=== PATIENT | female | born 1995 | race African-American/Black ===

== ENCOUNTER 2017-05-08 23:30 | Inpatient (IN) | payer MEDICAID ==
[~2017-05-08] VITALS: Ht 167.6 cm; Wt 63.6 kg
[2017-05-08] MEDS ORDERED: LITHIUM CARBON300 MG PO (23:38)
[2017-05-08] MEDS ORDERED: TRINESSA1 TAB PO (23:40)
[2017-05-08 23:45] VITALS: BP 129/84
[2017-05-09] VITALS (29 sets, daily range): BP systolic 90–137; BP diastolic 51–95; Ht 167.6 cm; Wt 63.6 kg
[2017-05-09] MEDS ORDERED: XANAX XR0.5 MG PO (00:04)
[2017-05-09 02:01] LABS: APPEARANCE HAZY (CLEAR); BILIRUBIN NEGATIVE (NEGATIVE); COLOR DK YELLOW (YELLOW); GLUCOSE NEGATIVE (NEGATIVE); KETONE NEGATIVE (NEGATIVE); NITRITE NEGATIVE (NEGATIVE); PROTEIN 1+ mg/dL (NEGATIVE); SPECIFIC GRAVITY 1.015 (1.005-1.020); UROBILINOGEN NORMAL (NORMAL); WHITE CELLS - URINE 0-5 /hpf (0-5)
[2017-05-09 02:02] LABS: BACTERIA NONE SEEN /hpf (NONE SEEN)
[2017-05-09 04:21] LABS: INR 2.5 (0.85-1.17); PROTIME 26.3 SECONDS (11.6-15.0)
[2017-05-09 04:30] LABS: BILIRUBIN - TOTAL 3.54 mg/dL (0.2-1.3); CALCIUM 7.6 mg/dL (8.5-10.1); CARBON DIOXIDE 27.9 mmol/L (21.0-32.0); CREATININE - SERUM 1.8 mg/dL (0.6-1.3); PROTEIN - SERUM 6.2 g/dL (6.4-8.2)
[2017-05-09 04:33] LABS: ANION GAP 12.8 mmol/L (8-16); POTASSIUM - SERUM 2.7 mmol/L (3.5-5.1)
[2017-05-09 08:28] LABS: HEMATOCRIT 35.5 % (36.0-48.0); HEMOGLOBIN 12.1 g/dL (12-16); MCH 28.7 pg (26.0-34.0); MCHC 34.1 g/dL (31.0-37.0); MCV 84.1 fL (80.0-100.0); MEAN PLATELET VOLUME 10.1 fL (7.4-10.4); PLATELET COUNT 196 10x3/uL (130-400); RBC 4.22 10x6/uL (4.00-5.40); RDW 15.7 % (11.5-14.5); WBC 2.7 10x3/uL (4.8-10.8)
[2017-05-09 08:52] LABS: LYMPHOCYTES 22 % (15-50); MONOCYTES 10 % (2-11); NEUTROPHILS 60 % (40-80); PLATELET ESTIMATE NORMAL; PLATELET MORPHOLOGY GIANT PLTS PRESENT
[2017-05-10] VITALS (14 sets, daily range): BP systolic 92–112; BP diastolic 56–79
[2017-05-10 03:50] LABS: BASOPHILS 0.9 % (0-2); EOSINOPHILS 0 % (0-7); HEMATOCRIT 34.3 % (36.0-48.0); HEMOGLOBIN 11.5 g/dL (12-16); IMMATURE GRANULOCYTES 0.9 % (0-5); MCH 28.9 pg (26.0-34.0); MCHC 33.5 g/dL (31.0-37.0); MEAN PLATELET VOLUME 9.7 fL (7.4-10.4); MONOCYTES 15.1 % (2-11); NEUTROPHILS 39.1 % (40-80); PLATELET COUNT 177 10x3/uL (130-400); RBC 3.98 10x6/uL (4.00-5.40); RDW 16.3 % (11.5-14.5); WBC 5.8 10x3/uL (4.8-10.8)
[2017-05-10 03:51] LABS: MCV 86.2 fL (80.0-100.0)
[2017-05-10 03:59] LABS: APTT 40.4 SECONDS (22.8-39.4)
[2017-05-10 04:02] LABS: INR 1.76 (0.85-1.17)
[2017-05-10 04:10] LABS: ALBUMIN 2.4 g/dL (3.4-5.0); BILIRUBIN - TOTAL 2.76 mg/dL (0.2-1.3); CALCIUM 7.3 mg/dL (8.5-10.1); CARBON DIOXIDE 25.7 mmol/L (21.0-32.0); PROTEIN - SERUM 5.4 g/dL (6.4-8.2)
[2017-05-10 04:15] LABS: ANION GAP 11.4 mmol/L (8-16); PHOSPHOROUS 1.3 mg/dL (2.5-4.9); POTASSIUM - SERUM 4.1 mmol/L (3.5-5.1)
[2017-05-11] VITALS: BP 114/50
[2017-05-11 04:00] VITALS: BP 94/62
[2017-05-11 04:32] LABS: BASOPHILS 0.2 % (0-2); EOSINOPHILS 0.4 % (0-7); HEMOGLOBIN 10.7 g/dL (12-16); MCH 28.4 pg (26.0-34.0); MCHC 33.4 g/dL (31.0-37.0); MCV 84.9 fL (80.0-100.0); MEAN PLATELET VOLUME 9.3 fL (7.4-10.4); NEUTROPHILS 39.4 % (40-80); PLATELET COUNT 168 10x3/uL (130-400); RBC 3.77 10x6/uL (4.00-5.40); RDW 16.6 % (11.5-14.5); WBC 4.8 10x3/uL (4.8-10.8)
[2017-05-11 04:47] LABS: APTT 35.7 SECONDS (22.8-39.4)
[2017-05-11 04:55] LABS: INR 1.25 (0.85-1.17); PROTIME 15.2 SECONDS (11.6-15.0)
[2017-05-11 05:08] LABS: ALBUMIN 2.3 g/dL (3.4-5.0); ALKALINE PHOSPHATASE 248 U/L (46-116); BILIRUBIN - TOTAL 3.25 mg/dL (0.2-1.3); CARBON DIOXIDE 24.4 mmol/L (21.0-32.0); CHLORIDE - SERUM 106 mmol/L (98-107); CREATININE - SERUM 0.8 mg/dL (0.6-1.3); GLUCOSE 82 mg/dL (74-106); PHOSPHOROUS 2.5 mg/dL (2.5-4.9); PROTEIN - SERUM 5.4 g/dL (6.4-8.2); SODIUM 139 mmol/L (136-145); eGFR NON AFRICAN AMERICAN > 90 mL/min (90-120)
[2017-05-11 05:15] LABS: CALC OSMOLALITY 274 mosm/kg (275-300); UREA NITROGEN 7 mg/dL (7-18)
[2017-05-11 05:16] LABS: ALT (SGPT) 821 U/L (10-68); CALCIUM 6.8 mg/dL (8.5-10.1); POTASSIUM - SERUM 2.8 mmol/L (3.5-5.1)
[2017-05-11 09:06] VITALS: BP 110/61
[2017-05-11 10:45] LABS: VANCOMYCIN - TROUGH 14.7 ug/mL (10.0-20.0)
[2017-05-11 13:22] VITALS: BP 102/64
[2017-05-11 17:29] VITALS: BP 114/71
[2017-05-11 20:00] VITALS: BP 98/60
[2017-05-11 22:30] LABS: POTASSIUM - SERUM 3.2 mmol/L (3.5-5.1); VANCOMYCIN - TROUGH 8.2 ug/mL (10.0-20.0)
[2017-05-12] VITALS: BP 90/51
[2017-05-12 04:00] VITALS: BP 93/52
[2017-05-12 06:00] LABS: APTT 35.2 SECONDS (22.8-39.4); INR 1.14 (0.85-1.17); PROTIME 14.2 SECONDS (11.6-15.0)
[2017-05-12 06:20] LABS: ALBUMIN 2.3 g/dL (3.4-5.0); ALKALINE PHOSPHATASE 300 U/L (46-116); CALCIUM 7.2 mg/dL (8.5-10.1); CHLORIDE - SERUM 106 mmol/L (98-107); CREATININE - SERUM 0.9 mg/dL (0.6-1.3); GLUCOSE 98 mg/dL (74-106); PHOSPHOROUS 2.5 mg/dL (2.5-4.9); POTASSIUM - SERUM 3.5 mmol/L (3.5-5.1); PROTEIN - SERUM 5.5 g/dL (6.4-8.2); SODIUM 138 mmol/L (136-145); eGFR NON AFRICAN AMERICAN 83 mL/min (90-120)
[2017-05-12 06:24] LABS: ALT (SGPT) 566 U/L (10-68); CALC OSMOLALITY 272 mosm/kg (275-300); UREA NITROGEN 4 mg/dL (7-18)
[2017-05-12 06:44] LABS: HEMATOCRIT 32.2 % (36.0-48.0); HEMOGLOBIN 10.7 g/dL (12-16); MCH 28.8 pg (26.0-34.0); MCHC 33.2 g/dL (31.0-37.0); MCV 86.6 fL (80.0-100.0); MEAN PLATELET VOLUME 9.7 fL (7.4-10.4); NEUTROPHILS 34.8 % (40-80); PLATELET COUNT 154 10x3/uL (130-400); RBC 3.72 10x6/uL (4.00-5.40); RDW 18.8 % (11.5-14.5); WBC 5.1 10x3/uL (4.8-10.8)
[2017-05-12 09:28] VITALS: BP 104/72
[2017-05-12] MEDS ORDERED: TAMIFLU75 MG PO (12:32)
[2017-05-12] MEDS ORDERED: LEVAQUIN750 MG PO (12:33)
[2017-05-12] MEDS ORDERED: DOXYCYCLINE HY100 M2 PO (12:34)
[2017-05-12] MEDS ORDERED: FLORAJEN3 CAPS460 MG PO (12:35)
[2017-05-12] MEDS ORDERED: VENTOLIN HFA18 GM INH (12:35)
[2017-05-12 12:41] VITALS: BP 93/55
[2017-05-12 16:13] LABS: HEPATITIS C ANTIBODY <0.1 (0.0-0.9)
[2017-05-12 16:39] VITALS: BP 100/54
[2017-05-13 11:17] LABS: ANA REFLEX - DIRECT Negative (Negative)
[2017-05-13 14:22] LABS: MITOCHONDRIAL ANTIBODY 6.4 Units (0.0-20.0); SMOOTH MUSCLE ABS (ACTIN) 8 Units (0-19)
== END 2017-05-12 18:21 | disposition home or self-care (01) | DRG 871 ==
LOC: D.ICU 23:30 → D.MS 23:30
PROVIDERS: Internal Medicine Gastroenterology; Internal Medicine Nephrology; Internal Medicine Pulmonary Disease
DX: A41.9 Sepsis, unspecified organism (principal); G93.41 Metabolic encephalopathy; R65.21 Severe sepsis with septic shock; K72.00 Acute and subacute hepatic failure without coma; N17.9 Acute kidney failure, unspecified; D68.9 Coagulation defect, unspecified; J11.1 Influenza due to unidentified influenza virus with other respiratory manifestations; F31.9 Bipolar disorder, unspecified; Z87.891 Personal history of nicotine dependence; E87.6 Hypokalemia